=== PATIENT | female | born 1960 | race Asian ===

== ENCOUNTER → 2018-09-06 | Outpatient (CLI) | payer OTHER | LOC: BRMIMAGING 13:35 | PROVIDERS: ATTEND Family Medicine | DX: Z12.31 Encounter for screening mammogram for malignant neoplasm of breast (principal); Z13.820 Encounter for screening for osteoporosis; M85.89 Other specified disorders of bone density and structure, multiple sites; Z91.89 Other specified personal risk factors, not elsewhere classified ==